=== PATIENT | female | born 1970 | race African-American/Black ===

== ENCOUNTER 2022-09-23 14:30 | Emergency (ER) | payer OTHER ==
[~2022-09-23] VITALS: Ht 177.8 cm; Wt 85.3 kg
--- NOTE | 2022-09-23 15:20 | NUR ---
L CALF PAIN S/P EXERCISE AT AROUND 1130
--- NOTE | 2022-09-23 15:30 | NUR ---
at bed side for eval ,
[2022-09-23] MEDS ORDERED: KETOROLAC TROMETHAMINE INJ 30 MG/ML VIAL ONE (15:53)
[2022-09-23] MEDS ORDERED: KETOROLAC TROMETHAMINE INJ 60 MG/2 ML VIAL IM ONE (16:00)
--- NOTE | 2022-09-23 16:00 | NUR ---
medicated as ordered
--- NOTE | 2022-09-23 16:04 | NUR ---
Patient discharged to home in stable condition. Written and verbal after care instructions given. Patient verbalizes understanding of instruction.
[2022-09-23 16:21] VITALS: BP 122/65
== END 2022-09-23 16:21 | disposition home or self-care (01) ==
LOC: ER 14:30
DX: M79.662 Pain in left lower leg (principal)
CPT/HCPCS: 99283; 96372; J1885